=== PATIENT | female | born 1985 | race Caucasian/White ===

== ENCOUNTER 2020-08-10 10:09 | Emergency (ER) | payer OTHER, SELFPAY ==
[~2020-08-10] VITALS: Ht 154.9 cm; Wt 79.1 kg
[2020-08-10 10:15] VITALS: Ht 154.9 cm; Wt 79.1 kg
[2020-08-10 11:33] VITALS: BP 103/66
== END 2020-08-10 11:33 | disposition home or self-care (01) ==
LOC: ED 10:09
DX: U07.1 COVID-19 (principal)
CPT/HCPCS: U0003